=== PATIENT | female | born 1965 | race Caucasian/White ===

== ENCOUNTER → 2018-01-14 | Outpatient (CLI) | payer OTHER | END | disposition home or self-care (01) | LOC: CFH 14:40 | PROVIDERS: ATTEND Obstetrics & Gynecology Gynecology | DX: N64.4 Mastodynia (principal) | CPT/HCPCS: 77066 ==

== ENCOUNTER → 2020-03-21 | Outpatient (CLI) | payer BC | END | disposition home or self-care (01) | LOC: CFH 08:12 | PROVIDERS: ATTEND Obstetrics & Gynecology Gynecology | DX: Z12.31 Encounter for screening mammogram for malignant neoplasm of breast (principal); N63.20 Unspecified lump in the left breast, unspecified quadrant | CPT/HCPCS: 77063; 77067 ==